=== PATIENT | male | born 1985 | race Caucasian/White ===

== ENCOUNTER 2017-09-11 14:41 | Inpatient (IN) ==
[2017-09-11] MEDS ORDERED: *HR* HYDROcodone/Acet 5/325 mg TABLET PO PRN (21:54)
[2017-09-11] MEDS ORDERED: Naloxone 0.4 MG/ML INJ IVP PRN (21:54)
[2017-09-11] MEDS ORDERED: Acetaminophen 325 MG TABLET PO PRN (21:54)
[2017-09-11] MEDS ORDERED: Gadolinium Contrast Agent (WT Based) IV PRN (21:57)
[2017-09-11] MEDS ORDERED: Ringers Solution, Lactated 1,000 ML IVC SCH (22:00)
--- NOTE | 2017-09-11 22:06 | Internal Med History&Physical ---
Date of Encounter: 09/11/17 Time of Encounter: 21:30 Internal Medicine - H&P: HPI Chief complaint: Right hand pain and swelling Admitted From: Emergency Dept Plans for Post Hospital Care: Home History of present illness: Mr. Ramos is a 31 year old male with no significant past medical history, who is sent from [facility], with c/o- right hand pain and swelling. Patient reports getting a splinter in his right palm about 5-6 days ago after which he noticed a small yellowish raised area at the site of the splinter. His symptoms got progressively worse over the last 5 days with significant redness, pain and swelling that is diffusely involved his palm and hand, including all 4 fingers except his thumb. His pain is really severe at this time and he is unable to close his fingers. He has redness and swelling spreading into his forearm with red streaking spreading into his arm. He does have some chills but no fever, nausea, vomiting. Patient presented to urgent care 2 days ago and was discharged home on oral Keflex, but his symptoms continued to get worse and so he presented back to the emergency room today. Past Med Surg Social Fam HX - Past Medical History Source: patient Medical history: no medical history Psychiatric history: no psych history - Past Surgical History Surgical History: tracheostomy - Social History Smoking Status: Current every day smoker Packs per day: 0.5 Smokeless Tobacco Status: No Alcohol use: none Drug use: none Occupational status: employed Current living situation: Home, With Family Activity Level: Independent ambulation Recent Out of Country Travel Within the Last 8 Weeks: No Exposure or Possible Exposure to Illness During Travel: No - Family History Mother Hx Family Endocrine Disorder: Yes (diabetes) Father Hx Family Cancer: Yes (Prostate cancer) Internal Medicine - H&P: Meds 3 Allergy/AdvReac Type Severity Reaction Status Date / Time No Known Allergies Allergy Verified 09/11/17 22:03 All Systems PM: A 10-system review of systems was performed and is negative for pertinent findings except as documented above in the HPI. - Constitutional Constitutional: chills, no fever(s), no night sweats - EENT Eyes: no change in vision, no discharge, no pain, no photophobia Ears: no ear discharge, no ear pain, no tinnitus Nose, mouth and throat: no dysphagia, no nasal discharge, no neck pain, no sore throat - Cardiovascular Cardiovascular ROS IM: no chest pain, no diaphoresis, no dyspnea, no lightheadedness, no palpitations, no syncope - Respiratory Respiratory: no cough, no dyspnea, no wheezing, no excessive phlegm production - Gastrointestinal Gastrointestinal: diarrhea, no abdominal pain, no hematemesis, no hematochezia, no melena, no nausea, no vomiting - Musculoskeletal Musculoskeletal ROS IM: limited range of motion, no numbness, no tingling - Integumentary Integumentary IM: as per HPI, erythema, no rash, no unusual bruising - Neurological Neurological ROS: no confusion, no convulsions, no focal weakness, no numbness, no tingling, no tremor(s) - Hematologic/Lymphatic Hematologic/Lymphatic: no easy bruising - Constitutional Vitals: Temp Pulse Resp BP Pulse Ox 98.2 F 90 16 122/72 99 09/11/17 20:29 09/11/17 20:29 09/11/17 20:29 09/11/17 20:29 09/11/17 20:29 General appearance: Present: A&O X 3, severe distress (Due to pain), answers questions appropriately - Respiratory Respiratory exam: Present: CTAB. Absent: accessory muscle use, rales, rhonchi, wheezes - Cardiovascular Cardiovascular exam: Present: RRR, +S1, +S2, tachycardia. Absent: diastolic murmur, gallop, rubs, systolic murmur - GI/Abdominal GI/Abdominal exam: Present: normal bowel sounds, soft, no peritoneal signs. Absent: distended, tenderness - Extremities Exam Extremities exam: Present: warm, radial pulses palpable and symmetrical. Absent : calf tenderness, cyanotic, pedal edema Additional comments: right hand- diffuse erythema, edema, tenderness involving palm, 2nd-5th fingers ; yellowish prominent area at base of ring finger; edema and erythema extending into distal forearm lymphangitis extending into medial right arm - Neurological Exam Neurological exam: Present: CN II-XII intact, oriented X3, no focal deficits. Absent: pronater drift, facial droop, speech deficit - Skin Skin exam: Present: dry, intact - Assessment and plan (1) Cellulitis Current Visit: Yes Status: Acute Assessment and plan: Right hand cellulitis, to consider abscess. Failed outpatient antibiotics. Continue pain control with PRN IV Fentanyl and PO Hydrocodone. Right hand elevation. IV hydration. Check CBC, BMP, LA. Send blood cultures. Start IV Vancomycin and Zosyn. CT right hand from ER apparently showed cellulitis with no osteomyelitis; cannot find CT report or CD at this time; attempting to have [facility] fax them to us. Case d/w Orthopedics , recommend MRI hand, full consult to follow. Qualifiers: Site of cellulitis: extremity Site of cellulitis of extremity: upper extremity Laterality: right Qualified Code(s): L03.113 - Cellulitis of right upper limb (2) Tobacco abuse Current Visit: Yes Status: Chronic Assessment and plan: Nicotine TD patch. - Time Spent With Patient Total time spent is greater than 50% in coordination of care (as documented) at patient's floor/unit and/or counseling patient:
[2017-09-11] MEDS: *HR* FentaNYL (PF) 100 MCG/2 ML VIAL IVP PRN (22:42)
[2017-09-11] MEDS: Piperacillin/Tazobactam 3.375 GM in 0.9 % Sodium Chloride Mini Bag 100 ML IVPB SCH (22:43)
[2017-09-11 22:49] LABS: Basophils % 0.3 %; Eosinophils # 0.2 K/mcL (0.0-0.6); Eosinophils % 1.5 %; Hematocrit 39.4 % (37.5-50.1); Hemoglobin 13.7 g/dL (12.9-16.9); Immature Granulocytes % 0.6 % (0-4); Lymphocytes # 1.4 K/mcL (0.6-4.6); Lymphocytes % 8.5 %; Mean Corpuscular HGB Conc 34.8 g/dL (31.6-35.5); Mean Corpuscular Hemoglobin 31.1 pg (28.0-33.3); Mean Corpuscular Volume 89.3 fL (83.0-100.0); Mean Platelet Volume 9.6 fL (9.4-12.4); Monocytes # 1.1 K/mcL (0.0-1.3); Monocytes % 7.1 %; Neutrophils # 13.1 K/mcL (1.6-8.9); Platelet Count 217 K/mcL (140-400); Red Blood Count 4.41 M/mcL (4.19-5.50); Red Cell Distribution Width 11.7 % (11.5-14.5)
[2017-09-11 23:00] LABS: BUN/Creatinine Ratio 13 (6-26); Blood Urea Nitrogen 9 mg/dL (6-20); Calcium 9.3 mg/dL (8.6-10.3); Carbon Dioxide 26 mEq/L (23-29); Chloride 105 mEq/L (98-107); Glucose 122 mg/dL (70-105); Osmolality,Calculated 284 (280-300); Potassium 3.8 mEq/L (3.5-5.1); Sodium 137 mEq/L (136-145); eGFR For African Americans > 60 (> 60); eGFR For Non-African Americans > 60 (> 60)
[2017-09-12] MEDS: *HR* FentaNYL (PF) 100 MCG/2 ML VIAL IVP PRN (03:48)
[2017-09-12] MEDS ORDERED: *HR* Enoxaparin 40 MG/0.4 ML SYRINGE SQ SCH (06:00)
--- NOTE | 2017-09-12 06:41 | Orthopedic Consult Note ---
Date of Encounter: 09/12/17 Time of Encounter: 06:38 Assessment and Plan (1) Cellulitis Current Visit: Yes Status: Acute I did discuss the diagnosis in detail with the patient. He has right hand cellulitis with significant swelling concerning for collar-button abscess at the fourth webspace. I did discuss treatment options and my recommendation was for incision, drainage, irrigation, and debridement of the right hand. The risks discussed included but were not limited to stiffness, bleeding, infection , blood clots, damage to neurovascular structures, tendons, ligaments, and bone. Also discussed was the risk of continued symptoms and possible need for further procedures. I did discuss the anesthesia risks including stroke, heart attack, and . I did discuss the reasonable, foreseeable postoperative course with the patient. He did wish to proceed and consent was obtained. Qualifiers: Site of cellulitis: extremity Site of cellulitis of extremity: upper extremity Laterality: right Qualified Code(s): L03.113 - Cellulitis of right upper limb History of Present Illness HPI: Mr. Ramos is a 31 year old male who is a transfer from [facility] related to a right hand infection. He said he got a splinter in the hand almost a week ago and started to develop swelling or redness. He did go to an urgent care and was placed on Keflex. Due to persistent and worsening symptoms he presented back to the emergency department where he was transferred to our [place] for definitive evaluation and management. He is placed on vancomycin and Zosyn. On my evaluation patient complains of significant pain isolated to the right hand. No feelings of illness. No numbness, tingling, or other associated signs or symptoms. Any movement of the hand does cause worsening of his pain. No other modifying factors. Past Med Surg Social Fam HX - Past Medical History Medical history: no medical history Psychiatric history: no psych history - Past Surgical History Surgical History: tracheostomy - Social History Smoking Status: Current every day smoker Packs per day: 0.5 Smokeless Tobacco Status: No Alcohol use: none Drug use: none - Family History Mother Hx Family Endocrine Disorder: Yes (diabetes) Father Hx Family Cancer: Yes (Prostate cancer) Medications and Allergies 3 Allergy/AdvReac Type Severity Reaction Status Date / Time No Known Allergies Allergy Verified 09/11/17 22:03 All Systems Reviewed: The remainder of the systems were reviewed and are negative Physical Exam - Constitutional Vitals: Temp Pulse Resp BP Pulse Ox 97.9 F 69 16 110/69 99 09/12/17 03:45 09/12/17 03:45 09/12/17 03:45 09/12/17 03:45 09/12/17 03:45 Constitutional -Vitals reviewed -The patient is well developed and well nourished. -Mood is pleasant. -The patient is well groomed. Psychiatric -The patient is fully alert and oriented x 3. Respiratory: -Respiratory effort normal Abdomen: -Soft abdomen -Non tender -Non distended: Left upper extremity: -No deformities. The overlying skin is intact. No obvious signs of acute trauma. -No tenderness to palpation throughout. -No significant pain with passive motion of the shoulder, elbow, wrist, and fingers within the limits of the bed. -Able to make an "OK" sign, cross the index and long fingers, and extend the thumb. -Sensation grossly intact to light touch throughout the median, radial, and ulnar distributions. -Radial pulse is present; Fingers have good capillary refill. Right upper extremity: -Significant swelling of the right hand diffusely -Erythema and focal edema and significant tenderness at the fourth webspace, particularly volarly with a raised pustule on the volar aspect of the ring finger A1 deepali region -No significant pain with passive motion of the shoulder, elbow, and wrist. -He can grossly flex and extend the digits but with significant limitation due to the pain and swelling -Sensation grossly intact to light touch throughout the median, radial, and ulnar distributions. -Radial pulse is present; Fingers have good capillary refill. Left lower extremity: -No deformities. The overlying skin is intact. No obvious signs of acute trauma. -No tenderness to palpation throughout. -No pain with passive motion of the hip, knee, ankle, and toes within the limits of the bed. -No pain with axial loading of the thigh. -Able to dorsiflex and plantarflex the ankle and toes. -Sensation is grossly intact to light touch throughout the sural, saphenous, superficial peroneal, and deep peroneal distributions. -Toes have good capillary refill. Right lower extremity: -No deformities. The overlying skin is intact. No obvious signs of acute trauma. -No tenderness to palpation throughout. -No pain with passive motion of the hip, knee, ankle, and toes within the limits of the bed. -No pain with axial loading of the thigh. -Able to dorsiflex and plantarflex the ankle and toes. -Sensation is grossly intact to light touch throughout the sural, saphenous, superficial peroneal, and deep peroneal distributions. -Toes have good capillary refill. CT scan reviewed from the [facility] system does not show any definite abscesses Results - Labs Result Diagrams: 09/11/17 22:24 09/11/17 22:24 Labs: Abnormal lab results WBC 15.9 K/mcL (4.3-11.1) H 09/11/17 22:24 Neutrophils # 13.1 K/mcL (1.6-8.9) H 09/11/17 22:24 Glucose 122 mg/dL (70-105) H 09/11/17 22:24 H & H 09/11/17 Range/Units 22:24 Hgb 13.7 (12.9-16.9) g/dL Hct 39.4 (37.5-50.1) % All other labs normal. Consult Discharge Plan - Plan Referrals: NONE,PCP [Primary Care Provider] -
[2017-09-12] MEDS ORDERED: Albuterol 2.5 MG/3 ML NEBULIZER ONE (07:57)
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
[2017-09-12] MEDS ORDERED: Bupivacaine/EPI 1:200k 0.5%PF 10 ML VIAL ONE (08:21)
[2017-09-12] MEDS ORDERED: *HR* Propofol 200 MG/20 ML VIAL IVP ONE (08:22)
[2017-09-12] MEDS ORDERED: *HR* FentaNYL (PF) 100 MCG/2 ML VIAL ONE (08:22)
[2017-09-12] MEDS: Piperacillin/Tazobactam 3.375 GM in 0.9 % Sodium Chloride Mini Bag 100 ML IVPB SCH ×2 (08:41→15:50)
[2017-09-12] MEDS ORDERED: Nicotine 14 MG PATCH.TD24 TD SCH (09:00)
--- NOTE | 2017-09-12 09:12 | Anesthesia Evaluation Post Op ---
Date of Encounter: 09/12/17 Time of Encounter: 09:58 Notes: Patient's vital signs have been reviewed. Patient is stable postoperatively and has adequately recovered from anesthesia. Patient is determined to have stable airway patency and respiratory function including respiratory rate and oxygen saturation. Patient has a stable heart rate, blood pressure and adequate hydration. Patients mental status is acceptable. Patients temperature is appropriate. Pain and nausea are adequately controlled. - Discharge PostOp Status: Transfer Patient to floor
[2017-09-12] MEDS ORDERED: *HR* HYDROmorphone (PF) 1 MG/ML SYRINGE IVP PRN (09:15)
[2017-09-12] MEDS ORDERED: Ketorolac 30 MG/ML VIAL ONE (09:16)
--- NOTE | 2017-09-12 09:32 | Orthopedic Operative Note ---
Date of procedure: 09/12/17 Procedure: OPERATIVE REPORT DATE OF PROCEDURE: 09/12/2017 SURGEON: Ceasar Feliciano MD UNIVERSITY RELATIONS DIRECTOR(S): There were no assistants PREOPERATIVE DIAGNOSIS: Right hand collar button abscess between the ring and small finger POSTOPERATIVE DIAGNOSIS: Same PROCEDURE: Incision, drainage, irrigation, and debridement of the right hand collar button abscess ANESTHESIA: Gen. anesthesia PREOPERATIVE ANTIBIOTICS: Vancomycin and Zosyn ESTIMATED BLOOD LOSS: 1 milliliters TOURNIQUET TIME: 18 minutes at 250 mmHg SPECIMENS: Aerobic and anaerobic cultures LOCAL INJECTION: 0.5% bupivacaine with 1:200,000 epinephrine; 7 mL used in total PREOPERATIVE NOTE AND INDICATIONS: This patient is a 31-year-old male with right hand cellulitis transferred from [facility]. I evaluated him on the floor as he was directly admitted to the hospitalist service. I did have concern for a collar-button abscess and my recommendation was for the above procedure. The surgical plan was discussed with the patient. The risks, benefits, alternatives, and potential complications of this procedure were discussed with the patient including injury to veins, arteries, nerves, tendons, ligaments, and bone. Also discussed were the risks of infection, bleeding, pain, blood clots, the possible need for a blood transfusion, the possible need for further procedures, heart attack, stroke, and . Just the risks include persistent infection and the need for further procedures. All of this was explained in simple terms, and the patient verbalized understanding and wished to proceed. Consent was given to proceed with surgery. PROCEDURE: The patient was seen in the preoperative holding area where the identify and the consent were confirmed. The right hand was marked. Final questions were answered. The patient was brought back to the operating room and placed supine on the operating room table. A huddle was performed with the patient and all vital surgical team members confirming patient identity, the correct procedure, and the correct operative site. Gen. anesthesia was administered. The right upper extremity was prepped and draped in the usual sterile fashion. A surgical time out was performed immediately preceding the incision with all personnel in the operating room to confirm patient identity, the correct operative site and extremity, correct radiographic studies, availability of appropriate surgical equipment, and agreement on the planned procedure. The tourniquet was inflated and an oblique incision was made over the volar webspace slightly skewed towards the ring finger ray as this was the area of most swelling. His immediately decompressed copious amounts of grossly purulent material. The wound was extended slightly proximally and distally and the neurovascular bundle along the ulnar aspect of the ring finger was identified and found to be intact. The wound was flushed with 3 L of saline. The ring finger flexor tendon sheath was identified and there was no pus within the tendon sheath. After final irrigation the wound was loosely closed over a [place] drain to allow for drainage. A soft, sterile dressing was applied. The instrument, sponge, and needle counts were correct after wound closure. POST OPERATIVE PLAN: Weight Bearing: Weightbearing as tolerated to the right upper extremity. DVT Prophylaxis: Ambulation Activity: Avoid aggressive activities with right upper extremity. Wound Care: Daily dressing changes Pain Control: Per the hospitalist Was there an marketing communications assistant present: No Estimated blood loss (cc): 1
[2017-09-12] MEDS ORDERED: Gadolinium Contrast Agent (WT Based) IV PRN (10:13)
[2017-09-12] MEDS ORDERED: Naloxone 0.4 MG/ML INJ IVP PRN (10:13)
[2017-09-12] MEDS ORDERED: *HR* HYDROcodone/Acet 5/325 mg TABLET PO PRN (10:13)
[2017-09-12] MEDS ORDERED: *HR* FentaNYL (PF) 100 MCG/2 ML VIAL IVP PRN (10:13)
[2017-09-12] MEDS ORDERED: Ringers Solution, Lactated 1,000 ML IVC SCH (10:13)
[2017-09-12] MEDS ORDERED: *HR* HYDROmorphone 2 MG/ML SYRINGE IVP PRN (10:13)
[2017-09-12] MEDS ORDERED: Acetaminophen 325 MG TABLET PO PRN (10:13)
[2017-09-12] MEDS ORDERED: Ketorolac 30 MG/ML VIAL IVP PRN (10:21)
[2017-09-12] MEDS: OXYCODONE Oral CONC 10 MG/0.5 ML ORAL.SYG SL PRN ×2 (10:30→20:04)
[2017-09-12] MEDS ORDERED: Aminoglycoside Consult 1 EACH MC ONE (10:54)
[2017-09-12] MEDS ORDERED: *HR* LORazepam 2 MG/ML VIAL IVP STA (12:32)
[2017-09-12] MEDS ORDERED: Nicotine 14 MG PATCH.TD24 TD ONE (12:34)
--- NOTE | 2017-09-12 13:10 | Internal Med Progress Note ---
Date of Encounter: 09/12/17 Time of Encounter: 10:00 - Assessment and plan (1) Cellulitis Current Visit: Yes Status: Acute Assessment and plan: With underlying abscess. Status post incision and drainage. Continue current antibiotics. Discussed with orthopedics. We will continue IV antibiotics for another day and possibly discharge tomorrow if he improves. Continue vancomycin and Zosyn. DVT prophylaxis with subcutaneous heparin Qualifiers: Site of cellulitis: extremity Site of cellulitis of extremity: upper extremity Laterality: right Qualified Code(s): L03.113 - Cellulitis of right upper limb (2) Tobacco abuse Current Visit: Yes Status: Chronic Assessment and plan: On nicotine patch. - Time Spent With Patient Total time spent is greater than 50% in coordination of care (as documented) at patient's floor/unit and/or counseling patient: - Subjective Interval history: Patient having a lot of pain in his right forearm. He underwent incision and drainage under general anesthesia earlier today. Has been having pain since then. Is able to move his fingers. - Constitutional Vitals: Temp Pulse Resp BP Pulse Ox 98.5 F 100 16 125/77 98 09/12/17 12:11 09/12/17 12:11 09/12/17 12:11 09/12/17 12:11 09/12/17 12:11 General appearance: Present: cooperative, A&O X 3, severe distress (Due to pain) , answers questions appropriately - Neck Neck exam general surgery: Present: supple, trachea midline. Absent: lymphadenopathy - Respiratory Respiratory exam: Present: CTAB. Absent: accessory muscle use, rales, rhonchi, wheezes - Cardiovascular Cardiovascular exam: Present: RRR, +S1, +S2. Absent: diastolic murmur, gallop, rubs, systolic murmur - GI/Abdominal GI/Abdominal exam: Present: normal bowel sounds, soft, no peritoneal signs. Absent: distended, tenderness - Extremities Exam Extremities exam: Present: tenderness (right forearm bandaged. Tender to palpation.), warm, radial pulses palpable and symmetrical. Absent: calf tenderness, cyanotic, pedal edema - Neurological Exam Neurological exam: Present: CN II-XII intact, oriented X3, no focal deficits. Absent: facial droop, speech deficit - Skin Skin exam: Present: dry, intact Internal Medicine: Result - Labs CBC & Chem 7: 09/11/17 22:24 09/11/17 22:24 Labs: Short CBC 09/11/17 Range/Units 22:24 WBC 15.9 H (4.3-11.1) K/mcL Hgb 13.7 (12.9-16.9) g/dL Hct 39.4 (37.5-50.1) % Plt Count 217 (140-400) K/mcL Neutrophils # 13.1 H (1.6-8.9) K/mcL BMP 09/11/17 22:24 Sodium 137 Potassium 3.8 Chloride 105 Carbon Dioxide 26 BUN 9 Creatinine 0.70 Glucose 122 H Calcium 9.3 Consult Discharge Plan - Plan Referrals: NONE,PCP [Primary Care Provider] -
[2017-09-13] MEDS: Piperacillin/Tazobactam 3.375 GM in 0.9 % Sodium Chloride Mini Bag 100 ML IVPB SCH ×2 (00:46→09:40)
[2017-09-13 01:58] LABS: Basophils % 0.1 %; Hematocrit 37.8 % (37.5-50.1); Hemoglobin 13.2 g/dL (12.9-16.9); Immature Granulocytes % 0.6 % (0-4); Lymphocytes # 1.3 K/mcL (0.6-4.6); Lymphocytes % 8.3 %; Mean Corpuscular HGB Conc 34.9 g/dL (31.6-35.5); Mean Corpuscular Hemoglobin 31.8 pg (28.0-33.3); Mean Corpuscular Volume 91.1 fL (83.0-100.0); Mean Platelet Volume 9.7 fL (9.4-12.4); Monocytes # 0.9 K/mcL (0.0-1.3); Monocytes % 5.5 %; Neutrophils # 13.5 K/mcL (1.6-8.9); Platelet Count 210 K/mcL (140-400); Red Blood Count 4.15 M/mcL (4.19-5.50); Red Cell Distribution Width 11.7 % (11.5-14.5); Segmented Neutrophils % 85.5 %
[2017-09-13 02:18] LABS: BUN/Creatinine Ratio 15 (6-26); Blood Urea Nitrogen 11 mg/dL (6-20); Calcium 9.1 mg/dL (8.6-10.3); Carbon Dioxide 26 mEq/L (23-29); Chloride 105 mEq/L (98-107); Glucose 189 mg/dL (70-105); Osmolality,Calculated 286 (280-300); Potassium 3.7 mEq/L (3.5-5.1); Sodium 136 mEq/L (136-145); eGFR For African Americans > 60 (> 60); eGFR For Non-African Americans > 60 (> 60)
[2017-09-13] MEDS ORDERED: *HR* Enoxaparin 40 MG/0.4 ML SYRINGE SQ SCH (06:00)
[2017-09-13] MEDS: OXYCODONE Oral CONC 10 MG/0.5 ML ORAL.SYG SL PRN (06:33)
[2017-09-13 07:00] VITALS: BP 129/81
--- NOTE | 2017-09-13 08:07 | Orthopedics Progress Note ---
Date of Encounter: 09/13/17 Time of Encounter: 08:04 - Assessment and Plan (1) Cellulitis Current Visit: Yes Status: Acute Qualifiers: Site of cellulitis: extremity Site of cellulitis of extremity: upper extremity Laterality: right Qualified Code(s): L03.113 - Cellulitis of right upper limb Subjective Interval history: S: Improved pain overnight. No new injuries or complaints O: Afebrile on the vital signs are stable The dressing is taken down and the cellulitis has improved The streaking up the right brachium has also improved Swelling has improved to the right hand Jeanie drain intact; no gross purulence He can grossly flex and extend the digits The fingertips are all grossly sensate and well-perfused, and the radial artery pulse is 2+. A: Postoperative day 1 after I&D of the right collar-button abscess P: The patient is improving after I&D of the right hand however he still does have cellulitis My recommendation is for continuing IV antibiotics at least for the next 24 hours I have ordered an ESR and CRP I anticipate pulling the drain tomorrow Objective Vital signs: Vital Signs Temp Pulse Resp BP Pulse Ox 09/13/17 06:57 97.5 F L 74 14 129/81 96 09/13/17 04:29 98.7 F 102 15 111/66 98 09/12/17 23:50 97.8 F 104 14 120/80 96 09/12/17 19:32 98.5 F 85 15 124/74 97 09/12/17 15:35 98.2 F 97 16 123/74 98 09/12/17 13:30 98.0 F 78 16 129/71 98 09/12/17 12:30 97.9 F 65 16 119/68 99 09/12/17 12:11 98.5 F 100 16 125/77 98 09/12/17 11:30 97.8 F 69 18 132/71 98 09/12/17 11:00 97.6 F 78 18 135/78 99 09/12/17 10:30 97.5 F L 74 18 125/76 98 09/12/17 10:00 97.9 F 70 20 114/77 98 09/12/17 09:50 76 20 108/67 96 09/12/17 09:40 77 20 105/67 95 09/12/17 09:30 98.3 F 78 20 105/64 98 Intake and Output 09/12/17 09/13/17 09/13/17 23:59 07:59 15:59 Intake Total 100 / 100 Balance 100 / 100 Intake: IV Fluids 100 / 100 Zosyn 3.375 GM In 0.9 % Sodium 100 / 100 Chloride (Mini-Bag +) 100 ML @ 25 mls/hr IVPB Q8HR RHODA Rx#: [id number] Other: # Voids 1 - Labs CBC & BMP: 09/13/17 01:39 09/13/17 01:39 Labs: Abnormal lab results WBC 15.8 K/mcL (4.3-11.1) H 09/13/17 01:39 RBC 4.15 M/mcL (4.19-5.50) L 09/13/17 01:39 Neutrophils # 13.5 K/mcL (1.6-8.9) H 09/13/17 01:39 Glucose 189 mg/dL (70-105) H 09/13/17 01:39 - VTE Documentation of Mechanical Device: Intermittent pneumatic compression device Consult Discharge Plan - Plan Referrals: NONE,PCP [Primary Care Provider] -
[2017-09-13 08:18] LABS: C-Reactive Protein 62 mg/L (Less than 10)
[2017-09-13] MEDS ORDERED: Nicotine 14 MG PATCH.TD24 TD SCH (09:00)
--- NOTE | 2017-09-13 11:20 | Discharge Summary ---
- NOTES TO OUTPATIENT PROVIDER Notes to Outpatient Provider: Patient admitted with right forearm and hand cellulitis and abscess. Evaluated by orthopedics and recommended IV antibiotics and incision and drainage. Patient underwent procedure yesterday. Orthopedics recommends on the day of IV antibiotics today but patient leaving the hospital AGAINST MEDICAL ADVICE. We will arrange follow up with orthopedics and will send prescription for Augmentin and doxycycline. Orders not resulted at time of discharge: Pending orders 09/12/17 09:00 Culture,Anaerobic [RM] Routine Culture,Wound [RM] Routine 09/12/17 12:35 Drug Screen, Urine [UCHEM] Stat Date of Encounter: 09/13/17 Time of Encounter: 09:20 - Discharge Diagnosis (1) Cellulitis Priority: Primary Status: Acute Qualifiers: Site of cellulitis: extremity Site of cellulitis of extremity: upper extremity Laterality: right Qualified Code(s): L03.113 - Cellulitis of right upper limb (2) Tobacco abuse Priority: Secondary Status: Chronic Hospital course: Mr. Ramos is a 31 year old male Patient with history of hepatitis C admitted here with right forearm and wrist cellulitis afte getting injured with a splinter. Was evaluated by orthopedics. Patient underwent incision and drainage yesterday. He was receiving IV antibiotics. Orthopedics recommended continuing IV antibiotics for another day as patient has continued to have leukocytosis. However he wishes to go home AGAINST MEDICAL ADVICE. He understands the risks involved and still wishes to go home. I have sent prescriptions for Augmentin and doxycycline. He is advised to follow up with orthopedics after discharge. Discharge discussed with: patient, family, nurse - Time Spent with Patient Total time spent providing and/or coordinating discharge services: Less than 30 minutes (25 min) - Discharge Medications Prescriptions: Amoxicillin/Clavulanate [Augmentin] 875 mg PO BIDWM #20 tablet Doxycycline Hyclate 100 mg PO BID #20 tablet. Home Medications: Amoxicillin/Clavulanate [Augmentin] 875 mg PO BIDWM #20 tablet 09/13/17 [Rx] Doxycycline Hyclate 100 mg PO BID #20 tablet. 09/13/17 [Rx] Allergies/Adverse Reactions: 3 Allergy/AdvReac Type Severity Reaction Status Date / Time No Known Allergies Allergy Verified 09/11/17 22:03 Date of admission: 09/11/17 19:29 Primary care physician: PCP NONE Consults: 09/11/17 21:56 Consult to Orthopedic Surgery [CONS] Routine Consulting Provider: [facility] Reason for Consult: Right hand cellulitis, severe pain and swelling Call Completed: Yes Discharging clinician: Jazz Alberto Anticipated date of discharge: 09/13/17 - Constitutional Vitals: Temp Pulse Resp BP Pulse Ox 97.5 F L 74 14 129/81 96 09/13/17 06:57 09/13/17 06:57 09/13/17 06:57 09/13/17 06:57 09/13/17 06:57 General appearance: Present: cooperative, A&O X 3, severe distress (Due to pain) , answers questions appropriately - Respiratory Respiratory exam: Present: CTAB. Absent: accessory muscle use, rales, rhonchi, wheezes - Cardiovascular Cardiovascular exam: Present: RRR, +S1, +S2. Absent: diastolic murmur, gallop, rubs, systolic murmur - GI/Abdominal GI/Abdominal exam: Present: normal bowel sounds, soft, no peritoneal signs. Absent: distended, tenderness - Extremities Exam Extremities exam: Present: warm, radial pulses palpable and symmetrical. Absent : calf tenderness, cyanotic, pedal edema Additional comments: Right upper extremity bandaged - Skin Skin exam: Present: dry, intact - Patient Status Disposition: Left Against Medical Advice Condition: Undetermined Functional capacity at discharge: independent ambulation Overall status at discharge: patient is not back to baseline - Discharge Instructions Follow Up With: NONE,PCP [Primary Care Provider] - Additional Instructions: Follow-up with orthopedics within 1 week. Return to the ER if he develops fever or chills or worsening pain - Diet and Activity Activity: increase activity as tolerated Diet: advance to your usual diet - VTE Documentation of Mechanical Device: Intermittent pneumatic compression device
== END 2017-09-13 10:55 | disposition left against medical advice (07) | DRG 364 ==
LOC: 3NENU 19:29 → SUATTDRO 19:29
PROVIDERS: ADMIT Internal Medicine; ATTEND Internal Medicine